=== PATIENT | female | born 1950 | race Caucasian/White ===

== ENCOUNTER → 2019-08-06 | Outpatient (CLI) | payer MEDICARE | END | disposition home or self-care (01) | LOC: LABPAT 11:47 | PROVIDERS: ATTEND Orthopaedic Surgery | DX: Z01.812 Encounter for preprocedural laboratory examination (principal) | CPT/HCPCS: 87070 ==

== ENCOUNTER 2019-08-24 05:55 | Day surgery (SDC) | payer MEDICARE ==
[2019-08-18 15:08] VITALS: BMI 29.5
--- NOTE | 2019-08-23 11:22 | HP ---
HISTORY AND PHYSICAL REASON FOR ADMISSION: Surgery scheduled for 08/24/2019. HISTORY OF PRESENT ILLNESS: Juanis Robb is a 69-year-old patient seen with symptomatic right knee osteoarthritis. After having treatment options discussed with her, she elected to proceed with right total knee arthroplasty. Consent regarding the procedure was obtained. Medical clearance was provided by Dr. Sorto. PAST MEDICAL HISTORY: Noncontributory. PAST SURGICAL HISTORY: Left total knee arthroplasty. MEDICATIONS: Advil. ALLERGIES: CODEINE. SOCIAL HISTORY: She denies current tobacco use. PHYSICAL EXAMINATION: Evaluation of right knee range of motion is -7 to 115. There is a mild effusion present. She has tenderness along the medial joint line. There is crepitus along the medial and patellofemoral compartments with range of motion. There is pain with patellofemoral compression. Ligaments are stable. Hip rotation is without pain. Distal neurovascular exam is intact. RADIOGRAPHS: Right knee radiographs reveal severe osteoarthritic changes. IMPRESSION: Right knee osteoarthritis. PLAN: Right total knee arthroplasty. Her surgery is scheduled for 08/24/2019. MMODL / IJN: [id number] /
[~2019-08-24 05:55] MED LIST: ACETAMINOPHEN TAB 500 MG TAB PO ONE; MELOXICAM 7.5 MG TAB PO ONE; TRANEXAMIC ACID 1,000 MG in SODIUM CHLORIDE 0.9% 100 ML IVPB ONE
[2019-08-24] MEDS ORDERED: ROPIVACAINE 246.25 MG, EPINEPHrine 0.5 MG, KETOROLAC 30 MG, cloNIDine HCL/PF 80 MCG, WA... MISCELLANE ONE ×5 (06:00)
[2019-08-24] MEDS ORDERED: ONDANSETRON 4 MG/2 ML VIAL IVP ONE (06:09)
[2019-08-24] MEDS ORDERED: LIDOCAINE 1% (10MG/ML) FOR IV START INTRADERMA ONE (06:39)
[2019-08-24] MEDS: LACTATED RINGERS 1,000 ML IV SCH (06:41)
[2019-08-24] MEDS ORDERED: DEXAMETHASONE SOD PHOS (MDV) 100 MG/10 ML VIAL IVP ONE (06:45)
[2019-08-24] MEDS ORDERED: MIDAZOLAM 2 MG/2 ML VIAL IVP ONE (07:06)
[2019-08-24] MEDS ORDERED: fentaNYL (PF) 50 MCG/ML 2 ML AMP IVP ONE (07:06)
[2019-08-24] MEDS ORDERED: TRANEXAMIC ACID 1,000 MG/10 ML VIAL ONE (07:30)
[2019-08-24] MEDS ORDERED: NEOSTIGMINE 1 MG/ML 10 ML VIAL ONE (07:30)
[2019-08-24] MEDS ORDERED: SODIUM CHLORIDE 0.9% 100 ML BAG ONE (07:30)
[2019-08-24] MEDS ORDERED: VECURONIUM 10 MG VIAL IV ONE (07:30)
[2019-08-24] MEDS ORDERED: GLYCOPYRROLATE 0.2 MG/ML 2 ML VIAL ONE (07:30)
[2019-08-24] MEDS ORDERED: PROPOFOL 10 MG/ML 20 ML VIAL IV ONE (07:30)
[2019-08-24] MEDS ORDERED: HYDROmorphone (PF) 1 MG/ML ONE (07:30)
[2019-08-24] MEDS ORDERED: SUCCINYLCHOLINE CHLORIDE 100 MG/5 ML SYR IV ONE (07:30)
[2019-08-24] MEDS ORDERED: LIDOCAINE 1% INJ 10MG/ML (20 ML MDV) ONE (07:30)
[2019-08-24] MEDS ORDERED: fentaNYL (PF) 50 MCG/ML 2 ML AMP ONE (07:30)
[2019-08-24] MEDS ORDERED: ROPIVACAINE 0.2%-NS ON-Q PUMP 1,090 MG, EMPTY PAIN BALL 1 EACH MISCELLANE PRN (07:56)
--- NOTE | 2019-08-24 07:57 | P.ANPRN ---
Procedure Note - Anesthesia - Nerve Block Performed Right Adductor Canal Infusion Time Out Performed: Yes Date of Procedure: 08/24/19 Procedure Start Time: 07:05 Procedure Stop Time: 07:14 Location of Patient: PreOp Indication: Acute Post-Operative Pain, Requested by Surgeon Specifically requested for management of pain by DrLaz: Yunior Hayden Sedation Type: Sedate with meaningful contact maintained Preparation: Sterile Prep Position: Supine Catheter Depth at Skin (cm): 8 Catheter: Indwelling Needle Types: Pajunk Needle Gauge: 18 Ultrasound used to visualize needle placement: Yes Ultrasound used to observe medication spread: Yes Injectate: 0.5% Ropivacaine (see comment for volume) (20 cc) Blood Aspirated: No Pain Paresthesia on Injection Noted: No Resistance on Injection: Normal Image Stored and Saved: Yes Events: Uneventful and Well Tolerated
[2019-08-24] MEDS ORDERED: LACTATED RINGERS 1,000 ML IV ONE ×2 (08:15→09:14)
[2019-08-24] MEDS ORDERED: HYDROmorphone 1 MG/ML 1 ML SYRINGE IVP PRN (09:14)
[2019-08-24] MEDS ORDERED: HYDROmorphone 0.5 MG/0.5 ML SYRINGE IVP PRN ×2 (09:14)
[2019-08-24] MEDS ORDERED: NALOXONE 0.4 MG/ML 1 ML VIAL IV PRN (09:14)
[2019-08-24] MEDS ORDERED: HYDROcodone/APAP 5-325MG 1 EACH TAB PO PRN ×2 (09:14)
--- NOTE | 2019-08-24 09:14 | P.OP ---
Date of Procedure: 08/24/19 Preoperative Diagnosis: Right knee osteoarthritis Postoperative Diagnosis: Right knee osteoarthritis Procedure(s) Performed: Right total knee arthroplasty Implants: 1. Depuy attune size 6 narrow cruciate retaining cemented femur 2. Depuy attune size 6 fixed bearing cemented tibial baseplate 3. Depuy attune size 6 bearing 12 mm polyethylene tibial insert 4. Depuy attune 38 mm all polyethylene cemented patella Anesthesia: GETA, regional (Adductor canal catheter), local Surgeon: Yunior Hayden Mobile Battery Technician #1: Jose Wallace Estimated Blood Loss (ml): 35 Pathology: other (Bone) Condition: stable Disposition: PACU Indications for Procedure: 69-year-old patient seen with symptomatic right knee osteoarthritis. After having treatment options discussed, she elected to proceed with total knee arthroplasty. Operative Findings: see description of procedure Description of Procedure: Patient was taken to the operative suite after having an adductor canal catheter placed by the department of anesthesia. Patient underwent a general anesthetic by the department of anesthesia. Patient was given preoperative IV intake antibiotics and TXA. A well-padded tourniquet was placed about the right lower extremity. The lower extremity was then prepped and draped in the normal sterile orthopedic fashion. The extremity was elevated, a tourniquet was insufflated to 300. A standard anterior incision was made sharply through skin. Dissection was taken down through the subcutaneous soft tissues down to the extensor mechanism. A medial arthrotomy was performed, patella was everted and knee was flexed. There was advanced osteoarthritis noted. I introduced my distal intramedullary femoral drill. I then introduced the distal femoral cutting jig. Lorenzo OLIVA secured the cutting jig with 2 pins. I held retractors in position while Lorenzo OLIVA performed the distal femoral resection through the guide area we now removed her distal femoral cutting guide. We now placed our 4-in-1 femoral cutting block and positioned and it was secured with 2 pins by Lorenzo OLIVA while I held the block in position. The distal femoral finishing was now completed. A proximal tibial cutting guide was positioned. I held the guide in the appropriate position with both hands well Lorenzo OLIVA inserted stabilizing pins into the guide. Proximal tibial cut was made. We now placed a trial femoral component into position, along with an appropriate size tibial tray and insert. We now took the knee through range of motion and had full extension good flexion and good overall soft tissue balance noted. The patella was everted and stabilized with 2 towel clips held by Lorenzo OLIVA while I performed a flush with patellar quad tendon utilizing a fresh sawblade. We templated the patella, appropriate drill holes were made. An appropriate trial patella was positioned, knee was taken through full range of motion with the patella tracking very nicely. The trial patella was removed. Drill holes were made through the femoral component. All trial components were removed after marking off the appropriate rotation of the tibia. Retractors were now positioned along the proximal tibia. An appropriate keel punch was made with the appropriate size tibial guide by myself on Lorenzo OLIVA assisted by holding retractors. At this point appropriate size implants were chosen and opened. The joint was irrigated copiously with pulse lavage mechanical irrigation. The posterior capsule was infiltrated with local analgesic. The wound was irrigated with pulse lavage mechanical irrigation. We mixed antibiotic methylmethacrylate. We placed the knee into flexion. We placed multiple retractors assisted by Lorenzo OLIVA to expose the proximal tibia. Once the methyl methacrylate was ready, the tibial component was cemented into place removing any excess methylmethacrylate form by both myself and Lorenzo OLIVA. The femoral component was cemented into place removing the removing any excess methylmethacrylate performed by both myself and Lorenzo OLIVA. We then inserted the appropriate size polyethylene tibial insert. We made sure that it was locked into position. We took the knee into full extension, and then back in a flexion making sure we had removed any excess methylmethacrylate. The patellar component was then cemented down and secured with clamp. Excess methylmethacrylate removed. We kept the knee in full extension, patellar clamp in position until methylmethacrylate had hardened. Once it had hardened the patellar clamp was removed. The knee was taken through full range of motion. The patella tracked nicely. There was good soft tissue balancing. The tourniquet was now released. Additional hemostasis was achieved via electr ocautery. A second gram of TXA was given. The wound again was irrigated with pulse lavage mechanical irrigation. The superficial soft tissues were infiltrated local analgesic. The extensor mechanism was repaired with Vicryl. We checked the repair with range of motion and it was stable. The subcutaneous soft tissues were repaired with Vicryl in layers. The skin was approximated with pernio/Dermabond. Sterile dressings were applied followed by loose web roll and Robe bandage. The patient was transferred to a bed, and taken to recovery in stable and satisfactory condition. Lorenzo OLIVA assisted with this complex procedure.
[2019-08-24] MEDS ORDERED: diphenhydrAMINE 50 MG/ML 1 ML VIAL IVP ONE (09:51)
[2019-08-24] MEDS ORDERED: KETOROLAC 30 MG/ML 1 ML VIAL IVP ONE (09:52)
--- NOTE | 2019-08-24 09:56 | XR ---
EXAMINATION TYPE: XR knee limited RT DATE OF EXAM: 08/24/2019 COMPARISON: NONE TECHNIQUE: Two views submitted HISTORY: Post op FINDINGS: There is a prosthetic knee in near anatomic alignment. There is soft tissue edema and emphysema. IMPRESSION: 1. Postoperative change. Appears in near-anatomic alignment
[2019-08-24] MEDS: ONDANSETRON 4 MG/2 ML VIAL IVP PRN (10:10)
[2019-08-24] MEDS ORDERED: PROMETHAZINE INJ 25 MG/ML 1 ML VIAL IVPB ONE (10:39)
[2019-08-24] MEDS ORDERED: SCOPOLAMINE 1.5MG/72HR PATCH TRANSDERM ONE (10:49)
[2019-08-24] MEDS ORDERED: TRIMETHOBENZAMIDE 100 MG/ML 2 ML VIAL IM STA (11:26)
[2019-08-24] MEDS ORDERED: MAGNESIUM HYDROXIDE 2,400 MG/10 ML CUP PO PRN (12:59)
[2019-08-24] MEDS ORDERED: traMADol 50 MG TAB PO PRN (12:59)
[2019-08-24] MEDS ORDERED: ACETAMINOPHEN TAB 325 MG TAB PO PRN (12:59)
[2019-08-24 19:29] VITALS: RESP 17
[2019-08-24] MEDS: ENOXAPARIN 30 MG/0.3 ML SYRINGE SQ SCH (20:29)
[2019-08-24] MEDS ORDERED: SENNOSIDES-DOCUSATE SODIUM 1 EACH TAB PO SCH (21:00)
[2019-08-25] MEDS: ONDANSETRON 4 MG/2 ML VIAL IVP PRN (07:20)
[2019-08-25] MEDS: ENOXAPARIN 30 MG/0.3 ML SYRINGE SQ SCH (07:22)
[2019-08-25] MEDS: LACTATED RINGERS 1,000 ML IV SCH (07:31)
[2019-08-25 07:46] VITALS: BP 130/75; PULSE 89; TEMP 97.9
[2019-08-25 07:49] LABS: Basophils % (A) 0 %; Eosinophils % (A) 0 %; HCT 38.8 % (34.0-46.0); HGB 12.4 gm/dL (11.4-16.0); Lymphocytes # (A) 1.6 k/uL (1.0-4.8); Lymphocytes % (A) 12 %; MCH 29.4 pg (25.0-35.0); MCHC 32.1 g/dL (31.0-37.0); MCV 91.8 fL (80.0-100.0); Mean Platelet Volume 7.2; Monocytes # (A) 0.6 k/uL (0-1.0); Monocytes % (A) 5 %; Neutrophils # (A) 10.8 k/uL (1.3-7.7); Neutrophils % (A) 82 %; Platelet Count 286 k/uL (150-450); RBC 4.22 m/uL (3.80-5.40); RDW 12.8 % (11.5-15.5); WBC 13.1 k/uL (3.8-10.6)
--- NOTE | 2019-08-25 10:18 | P.PN ---
Subjective Progress Note Date: 08/25/19 Principal diagnosis: Status post right total knee arthroplasty patient is evaluated today at bedside. Patient was scheduled for outpatient surgery yesterday, she had severe nausea after surgery, she was admitted to Hospital for likely 1 night. She's doing better with nausea today. She is utilizing antinausea medication and not taking much of the narcotics at this time. She is ambulate well with physical therapy. She denies any chest pain or shortness of breath. Objective - Vital Signs Vital signs: Vital Signs Temp 97.9 F 08/25/19 07:00 Pulse 89 08/25/19 07:00 Resp 17 08/25/19 07:20 BP 130/75 08/25/19 07:00 Pulse Ox 93 L 08/25/19 07:00 Intake & Output 08/24/19 08/25/19 08/25/19 18:59 06:59 18:59 Intake Total 1600 Output Total 35 Balance 1565 Weight 76.5 kg Intake: IV 1600 Output: Estimated Blood Loss 35 Other: Voiding Method Toilet Toilet # Voids 3 - Exam Right lower extremity: Incision is clean, dry, and intact. The exofin fusion tape is in good condition. There is minimal soft tissue swelling and ecchymosis surrounding the medial and lateral aspects of the incision. Calf is soft, no tenderness with palpation. Plantar flexion, dorsiflexion, EHL, FHL are intact. Sensory exam to light touch throughout the extremity is intact, dorsal pedis pulses 2+. - Labs CBC & Chem 7: 08/25/19 06:55 Labs: Abnormal Lab Results - Last 24 Hours (Table) 08/25/19 Range/Units 06:55 WBC 13.1 H (3.8-10.6) k/uL Neutrophils # 10.8 H (1.3-7.7) k/uL Assessment and Plan Assessment: postoperative day #1 status post right total knee arthroplasty Plan: Pain control, plan for discharge on tramadol 50 mg, [id number] Tylenol and Advil as needed GI and DVT prophylaxis, we'll check copay Xarelto 10 mg every 12 days, if too expensive will utilize aspirin 81 mg twice a day Wound care instructions were discussed Icing and elevating techniques discussed Home physical therapy and nursing after discharge Medical recommendations Plan for discharge home today Time with Patient: Less than 30
--- NOTE | 2019-08-25 10:40 | P.PN ---
Progress Note - Text 08/24 650am 69-year-old female status post total knee replacement by Dr. noel. Patient has an On-Q pump for postop pain control with the solution running at 8 mL an hour with a VAS of 4. Dressing clean dry and intact. Plan to continue On-Q pump infusion
--- NOTE | 2019-08-25 11:56 | P.CONS ---
History of Present Illness - Reason for Consult Consult date: 08/25/19 medical management Requesting physician: Yunior Hayden - Chief Complaint R knee OA - History of Present Illness Juanis Robb is a 69 yo F with PMH of OA who is admitted for a scheduled R TKA. She underwent this procedure yesterday with Dr Hayden and is overall feeling well today. She reports pain that is well controlled with dilaudid and norco but had had some nausea. She denies fever, chills, chest pain, shortness of breath or leg swelling. She has been able to ambulate with PT and denies difficulty with transfers or balance. Review of Systems All systems: negative Constitutional: Denies chills, Denies fever Eyes: denies blurred vision, denies pain Ears, nose, mouth and throat: Denies headache, Denies sore throat Cardiovascular: Denies chest pain, Denies shortness of breath Respiratory: Denies cough Gastrointestinal: Denies abdominal pain, Denies diarrhea, Denies nausea, Denies vomiting Genitourinary: Denies dysuria, Denies hematuria Musculoskeletal: Reports gait dysfunction, Reports limitation of motion, Reports myalgias Integumentary: Denies pruritus, Denies rash Neurological: Denies numbness, Denies weakness Psychiatric: Denies anxiety, Denies depression Endocrine: Denies fatigue, Denies weight change Past Medical History Past Medical History: Osteoarthritis (OA) History of Any Multi-Drug Resistant Organisms: None Reported Past Surgical History: Joint Replacement Additional Past Surgical History / Comment(s): left knee replaced Past Anesthesia/Blood Transfusion Reactions: Postoperative Nausea & Vomiting (PONV) Past Psychological History: No Psychological Hx Reported Smoking Status: Never smoker Past Alcohol Use History: None Reported Past Drug Use History: None Reported - Past Family History Mother Family Medical History: Cancer Additional Family Medical History / Comment(s): colon Medications and Allergies Home Medications Medication Instructions Recorded Confirmed Type Ibuprofen [Advil] 200 - 400 mg PO Q6HR PRN 08/18/19 08/24/19 History Multivitamins, Thera [Multivitamin 1 tab PO DAILY 08/18/19 08/24/19 History (formulary)] Acetaminophen Tab [Tylenol] 650 mg PO Q4H PRN 08/24/19 08/24/19 History Docusate [Colace] 100 mg PO DAILY #30 capsule 08/25/19 Rx Famotidine [Pepcid] 20 mg PO DAILY #30 tablet 08/25/19 Rx Ondansetron HCl [Zofran] 8 mg PO DAILY PRN #14 tab 08/25/19 Rx Rivaroxaban [Xarelto] 10 mg PO DAILY #12 tab 08/25/19 Rx traMADol HCl [Ultram] 50 mg PO Q6H PRN #28 tab 08/25/19 Rx Allergies Allergy/AdvReac Type Severity Reaction Status Date / Time narcotics AdvReac Nausea Uncoded 08/24/19 06:19 Physical Exam Vitals: Vital Signs Temp Pulse Resp BP Pulse Ox 08/25/19 07:20 17 08/25/19 07:00 97.9 F 89 17 130/75 93 L 08/25/19 04:00 105 H 17 08/25/19 00:22 97.6 F 105 H 17 148/85 96 08/24/19 23:48 108 H 17 08/24/19 19:28 97.7 F 108 H 17 132/79 97 08/24/19 16:00 16 08/24/19 14:40 97.3 F L 102 H 16 129/76 95 08/24/19 13:03 97 16 131/64 95 08/24/19 12:02 95 16 126/61 97 Intake and Output 08/24/19 08/25/19 08/25/19 22:59 06:59 14:59 Other: Voiding Method Toilet Toilet Toilet # Voids 1 3 General: well nourished, well developed, NAD. Vitals reviewed Eyes: PERRL, EOMI, conjunctiva normal HENT: normocephalic, mucus membranes moist Neck: supple, no JVD Lungs: normal respiratory effort, no wheezes or rales CV: Regular rate and rhythm, no murmur. Peripheral pulses 2+ Abdomen: soft, nondistended, no organomegaly MSK: no edema, no calf tenderness, painful to knee flexion RLE Skin: warm and dry. Neuro: A&Ox3, normal mood and affect Results CBC & Chem 7: 08/25/19 06:55 Labs: Abnormal Lab Results - Last 24 Hours (Table) 08/25/19 Range/Units 06:55 WBC 13.1 H (3.8-10.6) k/uL Neutrophils # 10.8 H (1.3-7.7) k/uL Assessment and Plan (1) Osteoarthritis of right knee Current Visit: Yes Status: Acute Code(s): M17.11 - UNILATERAL PRIMARY OSTEOARTHRITIS, RIGHT KNEE SNOMED Code(s): 719816911090280 (2) Status post total right knee replacement Current Visit: Yes Status: Acute Code(s): Z96.651 - PRESENCE OF RIGHT ARTIFICIAL KNEE JOINT SNOMED Code(s): 4691323247327 Plan: 1. OA of R knee. S/p R TKA. She is medically stable for discharge. Pain control per primary. Continue to work with PT on ROM and gait training
== END 2019-08-25 13:30 | disposition home health service (06) ==
LOC: OR 05:55 → 4SSUR 13:46 → OR 08-25 13:30
PROVIDERS: ATTEND Orthopaedic Surgery
DX: M17.11 Unilateral primary osteoarthritis, right knee (principal); Z88.5 Allergy status to narcotic agent; Z96.652 Presence of left artificial knee joint; Z91.89 Other specified personal risk factors, not elsewhere classified; Z80.0 Family history of malignant neoplasm of digestive organs; Z79.1 Long term (current) use of non-steroidal anti-inflammatories (NSAID); Z79.899 Other long term (current) drug therapy; Z79.01 Long term (current) use of anticoagulants; Z87.898 Personal history of other specified conditions
CPT/HCPCS: 27447; 97161; 64448; 76942; 85025; 88300; 73560; C1776; C1713; J2250; J0171; J1200; J2550; J2710; J3250; J0690; J2405 ×2; J2001; J3010; J1885; J1650 ×2; J1170 ×2; J1100; J2795 ×2; J0330; J2704; J0735

== ENCOUNTER → 2024-04-01 | Outpatient (CLI) | payer MEDICARE ==
[2024-04-01 08:21] VITALS: BP 137/83; PULSE 77; RESP 17; TEMP 97.9
--- NOTE | 2024-04-01 08:39 | P.BCPRE ---
History of Present Illness H&P Date: 04/01/24 Chief Complaint: Left breast ductal carcinoma in situ Juanis is a 73-year-old female seen in consultation for Dr. Francisco Sorto regarding a biopsy-proven left breast DCIS. She underwent a bilateral mammogram which led to a left breast stereotactic core biopsy procedure on 03-14-2024. She believes she had not had a mammogram for approximately 3 years prior to the most recent one leading to the stereotactic core biopsy. Her pathology revealed ductal carcinoma in situ which was ER positive and DC negative. The report of the stereotactic core biopsy reveals that the area of concern was 6 cm and a suspicious area of microcalcifications within the segment at the 12:00 region was selected for biopsy. She does not feel any lumps masses or nodules of concern in either breast. She has never had any surgery on her breast. She has not had any recent infection or trauma to her breast. Note from Dr. Francisco Sorto 03-20-2024 reviewed Caffiene: occasional nicotine: none chocolate: daily BCP: 3 years in her 20's Family History: mother: colon Hormonal History: menarche: 14 , breast fed: no, age at first : 30 menopause: 52 hormone: none Surgical HIstory: bilatearl knee replacement Medical History: arthris Social History: nicotine: none alcohol: none drugs: none Consent for Procedure: I have explained the operation/procedure to the patient, including the risks, benefits, side effects, alternative therapies (including not receiving the proposed treatment or service), the likelihood of the patient achieving his/her goals, and potential recuperation problems for the procedure/sedation/analgesia, as well as any blood products, if indicated. I also explained to the patient the risks, benefits and side effects of the alternatives, as well as the risks related to not receiving the proposed procedure, care, treatment, or services. Review of Systems Constitutional: Denies chills, Denies fever Eyes: denies blurred vision, denies pain Ears: deny: decreased hearing, tinnitus Ears, nose, mouth and throat: Denies headache, Denies sore throat Breasts: bilateral: as per HPI Breasts: Reports as per HPI Cardiovascular: Denies chest pain, Denies shortness of breath Respiratory: Denies cough Gastrointestinal: Denies abdominal pain, Denies diarrhea, Denies nausea, Denies vomiting Genitourinary: Denies dysuria, Denies hematuria Menstruation: Reports postmenopausal Musculoskeletal: Reports as per HPI Integumentary: Denies pruritus, Denies rash Neurological: Denies numbness, Denies weakness Psychiatric: Denies anxiety, Denies depression Endocrine: Denies fatigue, Denies weight change Hematologic/Lymphatic: Reports as per HPI Allergic/Immunologic: Reports as per HPI Past Medical History Past Medical History: Osteoarthritis (OA) History of Any Multi-Drug Resistant Organisms: None Reported Past Surgical History: Joint Replacement Additional Past Surgical History / Comment(s): left knee replaced Past Anesthesia/Blood Transfusion Reactions: Postoperative Nausea & Vomiting (PONV) Past Psychological History: No Psychological Hx Reported Past Alcohol Use History: None Reported Past Drug Use History: None Reported - Past Family History Mother Family Medical History: Cancer Additional Family Medical History / Comment(s): colon Medications and Allergies Home Medications Medication Instructions Recorded Confirmed Type Ibuprofen [Advil] 200 - 400 mg PO Q6HR PRN 08/18/19 08/24/19 History Multivitamins, Thera [Multivitamin 1 tab PO DAILY 08/18/19 08/24/19 History (formulary)] Acetaminophen Tab [Tylenol] 650 mg PO Q4H PRN 08/24/19 08/24/19 History Docusate [Colace] 100 mg PO DAILY #30 capsule 08/25/19 Rx Famotidine [Pepcid] 20 mg PO DAILY #30 tablet 08/25/19 Rx Rivaroxaban [Xarelto] 10 mg PO DAILY #12 tab 08/25/19 Rx ondansetron HCL [Zofran] 8 mg PO DAILY PRN #14 tab 08/25/19 Rx traMADol HCl [Ultram] 50 mg PO Q6H PRN #28 tab 08/25/19 Rx Allergies Allergy/AdvReac Type Severity Reaction Status Date / Time narcotics AdvReac Nausea Uncoded 08/24/19 06:19 Physical Exam - Constitutional General appearance: Reports cooperative - EENT Eyes: Reports normal appearance ENT: Reports hearing grossly normal - Respiratory Respiratory: bilateral: CTA - Cardiovascular Cardiac: Reports regular rhythm - Gastrointestinal General gastrointestinal: Reports soft - Integumentary Integumentary: Reports normal turgor - Psychiatric Psychiatric: Reports A&O x's 3, Reports appropriate affect, Reports intact judgment & insight - Additional Findings Additional findings: Breast Exam: BRA: [id number] Inspection: bilateral grade 3 ptosis Palpation: right breast: Multi positional exam fibrocystic changes, no dominant masses or nodules of concern, large area of seborrheic keratosis which is elevated at 1 edge Right axilla: No adenopathy of concern Left breast: Multi positional exam well-healed scar from prior biopsy, fibrocystic changes, no dominant masses or nodules of concern Left axilla: Shotty adenopathy Results Bilateral mammogram revealed 6 cm area of concern in the left breast, core biopsy positive for DCIS this was performed on 03-13-2024 Assessment and Plan Assessment: Impression: Left breast DCIS/6 cm area Arthritis Plan: Presentation of case at tumor board Will discuss surgical options with the patient which would vary from extensive lumpectomy to a mastectomy. CC: Dr. Roche
== END ==
LOC: WWCWWP 07:52
PROVIDERS: ATTEND Surgery
DX: D05.12 Intraductal carcinoma in situ of left breast

== ENCOUNTER → 2024-04-03 | Outpatient (CLI) | payer MEDICARE ==
[2024-04-03 15:21] LABS: HCT 42.9 % (37.2-46.3); MCHC 32.6 g/dL (32.0-37.0); MCV 92.1 FL (80.0-97.0); Mean Platelet Volume 10.1 FL (9.5-12.2); NRBC Per 100 WBC 0 X 10*3/uL (0.00-0.01); Platelet Count 251 X 10*3/uL (140-440); RBC 4.66 X 10*6/uL (4.10-5.20); RDW 13.8 % (11.5-14.5); WBC 7.16 X 10*3/uL (4.50-10.00)
[2024-04-03 15:27] LABS: ALT 14 U/L (8-44); AST 19 U/L (13-35); Albumin 4.4 g/dL (3.8-4.9); Albumin/Globulin Ratio 1.83 Ratio (1.60-3.17); Alkaline Phosphatase 74 U/L (41-126); BUN/Creat Ratio 26.38 Ratio (12.00-20.00); Blood Urea Nitrogen 21.1 mg/dL (9.0-27.0); Calcium 9.6 mg/dL (8.7-10.3); Carbon Dioxide 25.7 mmol/L (21.6-31.8); Chloride 106 mmol/L (96-109); Globulin 2.4 g/dL (1.6-3.3); Glucose 87 mg/dL (70-110); Potassium 4.2 mmol/L (3.5-5.5); Sodium 143 mmol/L (135-145); Total Bilirubin 1.5 mg/dL (0.3-1.2); Total Protein 6.8 g/dL (6.2-8.2)
[2024-04-03 15:44] LABS: INR 1.01 sec (0.93-1.11); Prothrombin Time 10.9 sec (9.9-11.9)
== END | disposition home or self-care (01) ==
LOC: LABWHC1 10:33
DX: Z01.812 Encounter for preprocedural laboratory examination (principal)
CPT/HCPCS: 36415; 80053; 85027; 85610

== ENCOUNTER 2024-04-07 08:44 | Day surgery (SDC) | payer MEDICARE ==
[2024-04-02 14:24] VITALS: BMI 27.3
[~2024-04-07 08:44] MED LIST changes: -ACETAMINOPHEN TAB 500 MG TAB PO ONE; -MELOXICAM 7.5 MG TAB PO ONE; -TRANEXAMIC ACID 1,000 MG in SODIUM CHLORIDE 0.9% 100 ML IVPB ONE; +fentaNYL (PF) 50 MCG/ML 2 ML AMP IV PRN
[2024-04-07] MEDS: IV FLUID CONTINUATION 1,000 ML IV ONE ×2 (09:25→17:09)
[2024-04-07] MEDS: ALPRAZolam 0.25 MG TAB PO PRN (09:34)
[2024-04-07] MEDS: ACETAMINOPHEN TAB 500 MG TAB PO PRN (09:41)
--- NOTE | 2024-04-07 10:06 | NM ---
EXAMINATION TYPE: NM sentinel node injection DATE OF EXAM: 04/07/2024 COMPARISON: NONE CLINICAL INDICATION: Female, 73 years old with history of D05.12 INTRADUCTALCARCINOMA IN SITU OF LEFT BREAST; TECHNIQUE AND FINDINGS: The procedure of sentinel lymph node injection was explained to the patient. The benefits, alternatives, and risks were discussed. An informed consent was then obtained. Overlying skin is cleaned with sterile alcohol. Following this, 511 uCi Tc99m Tilmanocept was inject ed in the upper outer aspect of the left nipple intradermally. The patient tolerated the procedure well without any immediate complication. The patient was kept in the radiology department for short stay after the procedure and then taken to surgery for surgical p rocedure what is presumed intraoperative gamma probe will be used for sentinel lymph node detection. IMPRESSION: Left breast radiotracer injection for sentinel node localization as above. [facility] Joanie Solano, , 04/07/2024 10:03 AM
[2024-04-07] MEDS: ONDANSETRON 4 MG/2 ML VIAL IVP ONE (10:26)
[2024-04-07] MEDS: DEXAMETHASONE SOD PHOSPHATE 4 MG/ML 1 ML VIAL IV ONE (10:27)
[2024-04-07] MEDS: HEPARIN SODIUM,PORCINE 5,000 UNIT/ML 1 ML VIAL SQ PRN (10:27)
--- NOTE | 2024-04-07 10:27 | P.NAPBC ---
NAPBC Queries - NAPBC Queries Was patient's case review presented at [facility] tumor board? If no, comment.: No (patient ready for surgery prior to being able to present) Was patient's pathology reviewed at [facility]? If no, comment.: Yes Was breast conservation surgery offered? If no, comment.: Yes (discussed but an area 6 cm so patient shoce mastectomy) Was sentinel node biopsy offered? If no, comment.: Yes Was diagnosis confirmed by percutaneous core biopsy? If no, comment.: Yes Is patient mastectomy patient?: Yes Was a preop referral to reconstructive surgeon offered?: Yes Clinical Stage: DCIS left breast
[2024-04-07] MEDS: MIDAZOLAM 2 MG/2 ML VIAL IVP ONE (11:18)
[2024-04-07] MEDS ORDERED: DEXAMETHASONE SOD PHOSPHATE 4 MG/ML 1 ML VIAL ONE (11:25)
[2024-04-07] MEDS ORDERED: PHENYLEPHRINE-0.9% NACL SYG 1,000 MCG/10 ML SYRINGE ONE (11:25)
[2024-04-07] MEDS ORDERED: PROPOFOL 10 MG/ML 20 ML VIAL IV ONE (11:25)
[2024-04-07] MEDS ORDERED: SUCCINYLCHOLINE CHLORIDE 200 MG/10 ML VIAL IV ONE (11:25)
[2024-04-07] MEDS ORDERED: ROPIVACAINE 5 MG/ML 30 ML VIAL ONE (11:25)
[2024-04-07] MEDS ORDERED: LIDOCAINE 1% INJ 10MG/ML (20 ML MDV) ONE (11:25)
[2024-04-07] MEDS ORDERED: HYDROmorphone (PF) 1 MG/ML ONE (11:25)
[2024-04-07] MEDS ORDERED: fentaNYL (PF) 50 MCG/ML 2 ML AMP ONE (11:25)
[2024-04-07] MEDS: LIDOCAINE 1% INJ 10MG/ML (20 ML MDV) SQ ONE ×3 (12:06→14:03)
[2024-04-07] MEDS: LACTATED RINGERS 1,000 ML IV ONE (12:47)
[2024-04-07] MEDS ORDERED: NALOXONE 0.4 MG/ML 1 ML VIAL IV PRN (13:32)
[2024-04-07] MEDS ORDERED: HYDROmorphone 1 MG/ML 1 ML SYRINGE IVP PRN (13:32)
[2024-04-07] MEDS ORDERED: ONDANSETRON 4 MG/2 ML VIAL IVP PRN (13:32)
[2024-04-07] MEDS ORDERED: TEMAZEPAM 15 MG CAP PO PRN (13:32)
--- NOTE | 2024-04-07 13:32 | P.BCAON ---
Date of Procedure: 04/07/24 Preoperative Diagnosis: Left breast DCIS Postoperative Diagnosis: Same Procedure(s) Performed: Left mastectomy, left sentinel node mapping, deep sentinel node biopsy Anesthesia: JULIANAA Surgeon: Leslye Pritchard Estimated Blood Loss (ml): 25 IV fluids (ml): 600 Pathology: other (Left breast, left sentinel node biopsy) Condition: stable Disposition: same day Indications for Procedure: Biopsy-proven left breast DCIS Operative Findings: Fibrofatty breast tissue/2 radioactive and blue lymph nodes Description of Procedure: The patient is a 73-year-old white female who had an abnormal mammogram result ing in a left breast stereo tactic core biopsy. This revealed DCIS. It was felt that the area of DCIS spanned at least 6 cm. After discussion with the patient and review of the radiographs the patient wished for a left mastectomy with a sentinel node biopsy. The choosing wisely criteria were discussed with the patient that she is 73 and despite this she wished to have the lymph node sampled. The patient was seen in the preoperative area and injected in the periareolar region with radiotracer. She was then brought to the operative suite. Following induction of anesthesia the neoprobe was used to interrogate the axilla. Minimal radioactivity was identified. Therefore 10 cc of half percent methylene blue were injected into the periareolar area. The tissue was massaged for approximately 5 minutes. The left breast and axilla were then prepped and draped in a sterile fashion. The markings were placed for superior and inferior skin flaps. A superior skin flap was developed and carried down to the pectoralis muscle. An inferior skin flap was likewise developed and carried down to the pectoralis muscle. The breast was grasped using Allis clamps medially and dissected from the pectoralis muscle. Hemostasis was attained using the electrocautery device, the harmonic scalpel, and suture ligation of any vessels of concern. When we approached the area of the axilla the neoprobe was used to identify increased radioactivity. Some increased radioactivity was identified as well as 2 blue lymph nodes the blue lymph nodes were consistent with the radioactive lymph nodes. The first was grasped and resected. The 10- second count on this was 5245. The second was grasped and resected and the 10- second count on this was 29,000. The 10-second background count was 17. Both lymph nodes which were removed were also blue. No other adenopathy of concern was identified. No other radioactive or blue lymph nodes of concern were noted. The wound was then well irrigated. 2 HERMELINDA drains were placed. 1 in the axilla and 1 under the inferior flap. Surgicel in powder form was placed. The subcutaneous tissue was brought together using interrupted 3-0 Vicryl suture. This was followed by an interrupted 3-0 running subcutaneous suture. 4-0 Monocryl subcuticular suture was placed. The drains were secured using nylon suture. 10 cc of 1% lidocaine was injected into the incision. The patient tolerated the procedure in stable condition. All instrument and sponge counts were correct at the end of the case. - Sentinal Node Biopsy Operation performed with curative intent: Yes Tracer(s) used in upfront surgery (non-neoadjuvant): dye, radioactive tracer Tracer(s) used in the neoadjuvant setting: N/A All nodes present at end of dye-filled channel removed: Yes All significantly radioactive nodes were removed: Yes All palpably suspicious nodes were removed: Yes Clipped positive nodes identified and removed: N/A
[2024-04-07] MEDS: droPERidol 5 MG/2 ML VIAL IVP ONE (16:04)
[2024-04-07] MEDS: DEXTROSE 5%-0.45% NACL 1,000 ML IV SCH (17:36)
[2024-04-07] MEDS: HEPARIN SODIUM,PORCINE 5,000 UNIT/ML 1 ML VIAL SQ SCH (17:49)
[2024-04-08 01:49] LABS: Glucose,Whole Blood 129 mg/dL (70-110)
[2024-04-08 05:38] LABS: Basophils % (A) 0 %; Eosinophils % (A) 0 %; HGB 13.1 gm/dL (11.4-16.0); Lymphocytes # (A) 1.2 k/uL (1.0-4.8); Lymphocytes % (A) 8 %; MCH 30.9 pg (25.0-35.0); MCHC 33.5 g/dL (31.0-37.0); MCV 92.2 fL (80.0-100.0); Mean Platelet Volume 7.8; Monocytes # (A) 0.9 k/uL (0-1.0); Monocytes % (A) 6 %; Neutrophils % (A) 85 %; Platelet Count 211 k/uL (150-450); RBC 4.23 m/uL (3.80-5.40); RDW 13.3 % (11.5-15.5); WBC 15.3 k/uL (3.8-10.6)
--- NOTE | 2024-04-08 10:00 | P.ANPRN ---
Procedure Note - Anesthesia - Nerve Block Performed Left Erector Spinae Single Time Out Performed: Yes Date of Procedure: 04/07/24 Procedure Start Time: 11:14 Procedure Stop Time: 11:17 Location of Patient: PreOp Indication: Acute Post-Operative Pain, Requested by Surgeon Sedation Type: Sedate with meaningful contact maintained Preparation: Sterile Prep Position: Sitting Needle Types: Pajunk Needle Gauge: 21 Ultrasound used to visualize needle placement: Yes Ultrasound used to observe medication spread: Yes Blood Aspirated: No Pain Paresthesia on Injection Noted: No Resistance on Injection: Normal Image Stored and Saved: Yes Events: Uneventful and Well Tolerated (Ropivacaine 0.5% 15 cc plus dexamethasone 4 mg plus normal saline 10 cc given at T5 on the left side)
[2024-04-08] MEDS: PANTOPRAZOLE 40 MG/10 ML VIAL IVP SCH (10:14)
[2024-04-08] MEDS: HYDROcodone/APAP 5-325MG 1 EACH TAB PO PRN (10:15)
[2024-04-08] MEDS: ONDANSETRON 4 MG/2 ML VIAL IVP PRN (10:15)
--- NOTE | 2024-04-08 11:15 | P.PN ---
Subjective Progress Note Date: 04/08/24 Principal diagnosis: Postop day #1 left breast mastectomy Juanis is a 73-year-old white female status post left mastectomy and sentinel node biopsy, postop day #1. Postoperatively she has some weakness and dizziness. She is not complaining of pain. Her HERMELINDA output is minimal. Her hemoglobin is 13.1. White count 15.3. Objective - Vital Signs Vital signs: Vital Signs Temp 97.6 F 04/08/24 07:56 Pulse 94 04/08/24 07:56 Resp 18 04/08/24 07:56 BP 124/73 04/08/24 07:56 Pulse Ox 97 04/08/24 07:56 FiO2 Intake & Output 04/07/24 04/08/24 04/08/24 18:59 06:59 18:59 Intake Total 2150 Output Total 635 1970 30 Balance 1515 -1969 Weight 67.8 kg Intake: IV 2150 Output: Drainage 10 20 30 Left Anterior Breast 10 20 10 Left posterior Breast 20 drain 2 Urine 600 1950 Estimated Blood Loss 25 Other: # Voids 1 - Constitutional General appearance: Present: cooperative - EENT Eyes: Present: EOMI ENT: Present: hearing grossly normal - Neck Neck: Present: normal ROM - Respiratory Details: Breath sounds at bases decreased - Cardiovascular Rhythm: regular Heart sounds: normal: S1, S2 - Integumentary Integumentary Comment(s): Plan left chest wall clean and dry, HERMELINDA output serous in nature anterior HERMELINDA drain 10 cc, posterior HERMELINDA drain 20 cc - Musculoskeletal Musculoskeletal: Present: generalized weakness - Psychiatric Psychiatric: Present: A&O x's 3, appropriate affect, intact judgment & insight - Labs CBC & Chem 7: 04/08/24 05:11 Labs: Abnormal Lab Results - Last 24 Hours (Table) 04/08/24 04/08/24 Range/Units 01:45 05:11 WBC 15.3 H (3.8-10.6) k/uL Neutrophils # 13.0 H (1.3-7.7) k/uL POC Glucose (mg/dL) 129 H (70-110) mg/dL Assessment and Plan Assessment: Impression: Patient stable postop day #1 left mastectomy with sentinel node biopsy Generalized weakness Plan: Transfer service to Dr. Sorto From a surgical standpoint patient is stable Will follow as needed
[2024-04-08] MEDS ORDERED: ACETAMINOPHEN TAB 325 MG TAB PO PRN (14:10)
[2024-04-08] MEDS ORDERED: traMADol 50 MG TAB PO PRN (14:10)
--- NOTE | 2024-04-08 15:15 | P.CONS ---
History of Present Illness - Reason for Consult Consult date: 04/08/24 Medical management Requesting physician: Leslye Pritchard - Chief Complaint Left breast DCIS, status post left mastectomy, left sentinel node mapping/b - History of Present Illness Is a pleasant 73-year-old female with past medical history significant for osteoarthritis,PONV, on no home medications, recent abnormal mammogram , left breast cancer status post left breast mastectomy. Reports positive pain this morning, but has been declining pain medication as it is making her nauseated. No bowel movement, passing minimal flatus. Currently expresses some lighthea dedness and weakness requiring 1-2 person assist to get up to bedside commode. Denies shortness of breath, continue O2 sats in the mid to high 90s on room air. Afebrile, WBC 15.3, hemoglobin 13.1, platelets 211, glucose 129. Review of Systems ROS Statement: Those systems with pertinent positive or pertinent negative responses have been documented in the HPI. ROS Other: All systems not noted in ROS Statement are negative. Past Medical History Past Medical History: Cancer, Osteoarthritis (OA) Additional Past Medical History / Comment(s): Breast CA History of Any Multi-Drug Resistant Organisms: None Reported Past Surgical History: Joint Replacement Additional Past Surgical History / Comment(s): Bilateral knee replacement Past Anesthesia/Blood Transfusion Reactions: Postoperative Nausea & Vomiting (PONV) Past Psychological History: No Psychological Hx Reported Smoking Status: Never smoker Past Alcohol Use History: None Reported Past Drug Use History: None Reported - Past Family History Mother Family Medical History: Cancer Additional Family Medical History / Comment(s): colon Medications and Allergies Home Medications Medication Instructions Recorded Confirmed Type oxyCODONE HCL [OxyIR] 5 mg PO Q6H PRN #5 tab 04/07/24 Rx Allergies Allergy/AdvReac Type Severity Reaction Status Date / Time Pain Medications AdvReac Nausea & Uncoded 04/07/24 09:07 Vomiting Physical Exam Vitals: Vital Signs Temp Pulse Pulse Pulse Resp BP BP 04/08/24 13:46 97 97 92 118/73 119/77 04/08/24 12:00 97.5 F L 85 16 04/08/24 07:56 97.6 F 94 18 04/08/24 04:40 98.3 F 99 16 04/08/24 01:39 97.7 F 92 16 04/07/24 21:28 97.9 F 99 16 04/07/24 18:30 95 16 04/07/24 18:15 95 14 04/07/24 18:00 97 14 04/07/24 17:45 95 14 04/07/24 17:30 97.5 F L 104 H 14 04/07/24 17:07 97 16 04/07/24 16:35 87 16 04/07/24 16:21 94 16 04/07/24 16:08 94 16 04/07/24 15:31 90 16 04/07/24 15:16 91 16 04/07/24 15:01 90 16 BP Pulse Ox 04/08/24 13:46 116/72 04/08/24 12:00 126/74 95 04/08/24 07:56 124/73 97 04/08/24 04:40 119/67 96 04/08/24 01:39 111/62 97 04/07/24 21:28 129/78 99 04/07/24 18:30 130/72 95 04/07/24 18:15 130/74 97 04/07/24 18:00 130/80 96 04/07/24 17:45 127/72 04/07/24 17:30 121/75 92 L 04/07/24 17:07 133/62 95 04/07/24 16:35 136/68 94 L 04/07/24 16:21 137/66 94 L 04/07/24 16:08 154/73 96 04/07/24 15:31 137/66 96 04/07/24 15:16 140/63 96 04/07/24 15:01 139/64 99 Intake and Output 04/07/24 04/08/24 04/08/24 22:59 06:59 14:59 Intake Total 100 Output Total 910 1670 605 Balance -810 -1670 -605 Intake: IV 100 Output: Drainage 10 20 55 Left Anterior Breast 10 20 35 Left posterior Breast 20 drain 2 Urine 900 1650 550 Other: # Voids 1 1 Weight 67.8 kg General: well nourished, well developed, NAD. Vitals reviewed Eyes: PERRL, EOMI, conjunctiva normal HENT: normocephalic, mucus membranes moist Neck: supple, no JVD Lungs: normal respiratory effort, no wheezes or rales CV: Regular rate and rhythm, no murmur. Peripheral pulses 2+ Abdomen: soft, nondistended, no organomegaly MSK: no edema, no calf tenderness, positive DP pulse Skin: warm and dry. Left chest wall dressing clean dry and intact, minimal serous JPX2 drainage Neuro: A&Ox3, normal mood and affect Results CBC & Chem 7: 04/08/24 05:11 Labs: Abnormal Lab Results - Last 24 Hours (Table) 04/08/24 04/08/24 Range/Units 01:45 05:11 WBC 15.3 H (3.8-10.6) k/uL Neutrophils # 13.0 H (1.3-7.7) k/uL POC Glucose (mg/dL) 129 H (70-110) mg/dL Assessment and Plan Assessment: Left breast cancer status post left mastectomy with sentinel node biopsy PONV Generalized weakness secondary to recent surgery, anesthesia Plan: Continue on current medication resume ,monitoring and symptomatic treatment. Antiemetic/Zofran increased to every 6 hours prn. PPI ordered for GI prophylaxis. Tramadol and Tylenol added to pain med regimen-patient might be able to tolerate easier. PT/OT consulted. Case management consulted for potential subacute rehab at discharge. Aggressive pulmonary toileting with incentive spirometer reinforced, currently up to 1500. Orthostatic vital signs ordered, may consider gentle IV fluid hydration. Local wound care as per primary/surgery. Thank you for the consult. The impression and plan of care has been dictated as directed. : I performed a history and examination of this patient, discussed the same with the dictator. I agree with the dictator's note ,documented as a scribe. Any additional findings or plans will be noted.
[2024-04-08] MEDS: SENNOSIDES-DOCUSATE SODIUM 1 EACH TAB PO SCH (16:02)
[2024-04-08] MEDS: SODIUM CHLORIDE 0.9% 1,000 ML IV SCH (16:04)
[2024-04-08] MEDS: LACTATED RINGERS 1,000 ML IV SCH (23:07)
[2024-04-09 04:33] VITALS: RESP 18
[2024-04-09 07:10] LABS: Basophils % (A) 0 %; Eosinophils # (A) 0.1 k/uL (0-0.7); Eosinophils % (A) 1 %; HCT 39.7 % (34.0-46.0); HGB 13.3 gm/dL (11.4-16.0); Lymphocytes # (A) 1.7 k/uL (1.0-4.8); Lymphocytes % (A) 17 %; MCH 31.1 pg (25.0-35.0); MCHC 33.4 g/dL (31.0-37.0); Mean Platelet Volume 8.3; Monocytes # (A) 0.7 k/uL (0-1.0); Monocytes % (A) 6 %; Neutrophils # (A) 7.9 k/uL (1.3-7.7); Neutrophils % (A) 75 %; Platelet Count 209 k/uL (150-450); RBC 4.27 m/uL (3.80-5.40); RDW 13.7 % (11.5-15.5); WBC 10.5 k/uL (3.8-10.6)
[2024-04-09 07:36] LABS: African American GFR (CKD) 81 (>60 ml/min/1.73 sqM); Anion Gap 6 mmol/L; Blood Urea Nitrogen 12 mg/dL (7-17); Calcium 8.9 mg/dL (8.4-10.2); Carbon Dioxide 28 mmol/L (22-30); Chloride 108 mmol/L (98-107); Glucose 91 mg/dL (74-99); Non-African American GFR(CKD) 70 (>60 ml/min/1.73 sqM); Potassium 3.9 mmol/L (3.5-5.1); Sodium 142 mmol/L (137-145)
[2024-04-09 08:35] VITALS: BP 134/78; PULSE 84; TEMP 97.5
[2024-04-09] MEDS ORDERED: POTASSIUM CHLORIDE ER 20 MEQ TAB.ER PO STA (10:55)
--- NOTE | 2024-04-09 11:11 | P.DS ---
Providers Expected date of discharge: 04/09/24 Attending physician: Francisco Sorto MD Consults: 04/07/24 21:23 Consult Physician Stat Consulting Provider: Francisco Sorto Consult Reason/Comments: Medical management Do you want consulting provider notified?: Yes Primary care physician: Francisco Sorto MD Hospital Course: Final Diagnoses: Left breast cancer status post left mastectomy with sentinel node biopsy PONV Generalized weakness secondary to recent surgery, anesthesia Hospital course:- Chief Complaint Left breast DCIS, status post left mastectomy, left sentinel node mapping/b - History of Present Illness This is a pleasant 73-year-old female with past medical history significant for osteoarthritis,PONV, on no home medications, recent abnormal mammogram , left breast cancer status post left breast mastectomy. Reports positive pain this morning, but has been declining pain medication as it is making her nauseated. No bowel movement, passing minimal flatus. Currently expresses some lightheadedness and weakness requiring 1-2 person assist to get up to bedside commode. Denies shortness of breath, continue O2 sats in the mid to high 90s on room air. Afebrile, WBC 15.3, hemoglobin 13.1, platelets 211, glucose 129. Negative for orthostatic hypotension. Received gentle IV fluid hydration with significant clinical improvement. Denies chest pain, palpitations or shortness of breath. Maintaining O2 sats in the high 90s on room air. Reports she feels better this morning .Denies lightheadedness, dizziness or focal deficits. Reports pain controlled, declining pain medication currently. No nausea or vomiting. Positive bowel movement. Antiemetic/Zofran increased to every 6 hours prn. PPI ordered for GI prophylaxis. Tramadol and Tylenol added to pain med regimen-patient might be able to tolerate easier. PT/OT consulted. Case management consulted for potential subacute rehab at discharge. Aggressive pulmonary toileting with incentive spirometer reinforced, currently up to 1500. Orthostatic vital signs ordered, may consider gentle IV fluid hydration. Local wound care as per primary/surgery. Thank you for the consult. Cleared by general surgery for discharge. Patient will be discharged to subacute rehab today pending authorization. Local wound care/JPs as per general surgery. Follow-up appointment to be scheduled with surgery prior to discharge. General: Alert and oriented x 3, NAD. Vitals reviewed Eyes: PERRL, EOMI, conjunctiva normal HENT: normocephalic, mucus membranes moist Neck: supple, no JVD Lungs: normal respiratory effort, no wheezes or rales CV: Regular rate and rhythm, no murmur. Peripheral pulses 2+ Abdomen: soft, nondistended, no organomegaly MSK: no edema, no calf tenderness, positive DP pulse Skin: warm and dry. Left chest wall dressing clean dry and intact, minimal serous JPX2 drainage The impression and plan of care has been dictated as directed. : I performed a history and examination of this patient, discussed the same with the dictator. I agree with the dictator's note ,documented as a scribe. Any additional findings or plans will be noted. Patient Condition at Discharge: Stable Plan - Discharge Summary Discharge Rx Participant: No New Discharge Prescriptions: New Acetaminophen Tab [Tylenol] 650 mg PO Q6HR PRN tab PRN Reason: Fever And/ Or Pain Pantoprazole [Protonix] 40 mg PO AC-BRKFST tab Sennosides-Docusate Sodium [Senokot-S] 2 each PO BID tab Discharge Medication List Acetaminophen Tab [Tylenol] 650 mg PO Q6HR PRN tab 04/09/24 [Rx] Pantoprazole [Protonix] 40 mg PO AC-BRKFST tab 04/09/24 [Rx] Sennosides-Docusate Sodium [Senokot-S] 2 each PO BID tab 04/09/24 [Rx] Follow up Appointment(s)/Referral(s): Leslye Pritchard MD [STAFF PHYSICIAN] - 1 Week [facility], [NON-STAFF] - 1-2 Days Patient Instructions/Handouts: Mastectomy (GEN) Activity/Diet/Wound Care/Special Instructions: Local wound care/JPs removal as ordered per Dr. Ricky Donovan. Please schedule appointment with Dr. Ricky Donovan prior to discharge. Continue I-S every hour x 10 while awake x 2 weeks. RIKY aggarwal CHELA: Discharge Disposition: TRANSFER TO SNF/ECF
[2024-04-10] MEDS ORDERED: PANTOPRAZOLE 40 MG TABLET PO SCH (07:30)
== END 2024-04-09 14:00 ==
LOC: OR 08:44 → 4FBP 14:04 → OR 04-09 14:00
PROVIDERS: ATTEND Family Medicine
DX: D05.12 Intraductal carcinoma in situ of left breast (principal); M19.90 Unspecified osteoarthritis, unspecified site; Z79.899 Other long term (current) drug therapy; Z96.653 Presence of artificial knee joint, bilateral; Z80.0 Family history of malignant neoplasm of digestive organs
CPT/HCPCS: 19303; 38525; 97161; 97166; 64999; 80048; 85025 ×2; 88342; 88307; 88341; 38792; A9520; J2250; J0330; J1644 ×3; J1100; J0690; J2405 ×2; J2003; J3010; J1171; J2795; J2704; J1790; J2371; J2470 ×2; 64447

== ENCOUNTER → 2024-04-20 | Outpatient (CLI) | payer MEDICARE ==
[2024-04-20 09:59] VITALS: BP 119/72; PULSE 85; RESP 17; TEMP 98.5
--- NOTE | 2024-04-20 10:24 | P.BCPO ---
Progress Note - Text Progress Note Date: 04/20/24 Juanis is a 73 year old status post left breast mastectomy and SNB on 04-07-24. 2.2 CM DCIS margins (-), 3 SNB all (-). Closest margin 2 cm. Lungs: Clear Heart: Regular rate and rhythm Incision: Clean and dry 2 HERMELINDA drains are in place output was not documented however she was told that it was minimal she was in a nursing facility Impression: Patient doing well postoperative Plan: follow up medical oncology follow up here in one week check drain output Post Op Education - Post Op Education Post Op Education Provided Date: 04/20/24 - Functional Assessment Performed?: Yes (arm abduction passed) Path Report - Was patient given path report? Path Report Date Given: 04/20/24
== END ==
LOC: WWCWWP 08:50
PROVIDERS: ATTEND Surgery

== ENCOUNTER → 2024-05-01 | Outpatient (CLI) | payer MEDICARE ==
[2024-05-01 08:58] VITALS: BP 131/74; PULSE 86; RESP 16; TEMP 98.3
--- NOTE | 2024-05-01 09:48 | P.PN ---
Subjective Progress Note Date: 05/01/24 Progress Note - Text Progress Note Date: 05-01-24 Juanis is a 73 year old status post left breast mastectomy and SNB on 04-07-24. 2.2 CM DCIS margins (-), 3 SNB all (-). Closest margin 2 cm. seen on 04-20-24 and drains removed. Lungs: Clear Heart: Regular rate and rhythm Incision: Clean and dry Incision left chest wall clean and dry Small seroma Skin lesion right breast Impression: Patient doing well postoperative Plan: follow up medical oncology follow up here in one week Following informed consent aspiration of seroma office visit to remove skin lesion right breast Following informed consent the area of concern in the left breast was prepped u sing alcohol. An 18-gauge needle and a 20 cc syringe was used to aspirate 32 cc of straw-colored fluid. There was complete resolution of the seroma. The patient tolerated the procedure in stable condition. Patient has appointment with medical oncology next week and the plan is for her to return to work following that. Post Op Education - Post Op Education Post Op Education Provided Date: 04/20/24 - Functional Assessment Performed?: Yes (arm abduction passed) Path Report - Was patient given path report? Path Report Date Given: 04/20/24 Additional CC's: Francisco Sorto Objective - Vital Signs Vital signs: Vital Signs Temp 98.3 F 05/01/24 08:55 Pulse 86 05/01/24 08:55 Resp 16 05/01/24 08:55 BP 131/74 05/01/24 08:55 Pulse Ox 97 05/01/24 08:55 FiO2 Intake & Output 04/30/24 05/01/24 05/01/24 18:59 06:59 18:59 Weight 65.317 kg
== END ==
LOC: WWCWWP 08:09
PROVIDERS: ATTEND Surgery
DX: N64.89 Other specified disorders of breast (principal); L98.8 Other specified disorders of the skin and subcutaneous tissue; L76.33 Postprocedural seroma of skin and subcutaneous tissue following a dermatologic procedure; Z85.3 Personal history of malignant neoplasm of breast; Z90.12 Acquired absence of left breast and nipple; Z88.8 Allergy status to other drugs, medicaments and biological substances

== ENCOUNTER → 2024-05-12 | Outpatient (CLI) | payer MEDICARE ==
[2024-05-12 09:58] VITALS: BP 125/72; PULSE 89; RESP 17; TEMP 97.9
--- NOTE | 2024-05-12 11:44 | P.PN ---
Subjective Progress Note Date: 05/12/24 Principal diagnosis: left mastectomy for DCIS 05/01/24 Progress Note - Text Progress Note Date: 05-01-24 Juanis is a 73 year old status post left breast mastectomy and SNB on 04-07-24. 2.2 CM DCIS margins (-), 3 SNB all (-). Closest margin 2 cm. seen on 04-20-24 and drains removed. She was seen by medical oncology and told she had an opening in the axillary portion of her incision and comes today for evaluation. Upon examination of the incision there is approximately a 4 mm area of subcutaneous opening in the left most lateral aspect of the axillary incision. This was debrided and packed. There is no evidence of any infection. The patient is doing well. Plan: Follow-up in 1 week Objective - Vital Signs Vital signs: Vital Signs Temp 97.9 F 05/12/24 09:32 Pulse 89 05/12/24 09:32 Resp 17 05/12/24 09:32 BP 125/72 05/12/24 09:32 Pulse Ox 97 05/12/24 09:32 FiO2 Intake & Output 05/11/24 05/12/24 05/12/24 18:59 06:59 18:59 Weight 65.317 kg Assessment and Plan Assessment: Plan: Follow-up in 1 week Patient is going to pack area of concern and will follow-up sooner any questions or concerns
== END ==
LOC: WWCWWP 08:13
PROVIDERS: ATTEND Surgery
DX: Z04.89 Encounter for examination and observation for other specified reasons (principal); Z90.12 Acquired absence of left breast and nipple; Z85.3 Personal history of malignant neoplasm of breast; Z88.8 Allergy status to other drugs, medicaments and biological substances

== ENCOUNTER → 2024-05-27 | Outpatient (CLI) | payer MEDICARE ==
--- NOTE | 2024-05-27 14:10 | BD ---
EXAMINATION TYPE: Axial Bone Density DATE OF EXAM: 05/27/2024 CLINICAL HISTORY: 73 years old Female. ICD-10 CODE: M81.0 osteopenia , Additional History: Height: 59.5 in Weight: 145 lbs EXAM MEASUREMENTS: Bone mineral densitometry was performed using the VisiQuate System. Bone mineral density as measured about the Lumbar spine is: ----- L1-L4(G/cm2): 1.025 T Score Values are as follows: ----- L1: -2.2 ----- L2: -2.3 ----- L3: -1.2 ----- L4: 0.1 ----- L1-L4: -1.3 Z Score Values are as follows: ----- L1: -0.6 ----- L2: -0.7 ----- L3: 0.5 ----- L4: 1.8 ----- L1-L4: 0.4 Bone mineral density has: Decreased -4.1% since study of: 01/25/2006 Bone mineral density about the R hip (g/cm2): 0.765 Bone mineral density about the L hip (g/cm2): 0.772 T Score values are as follows: -----R Neck: -2.6 -----L Neck: -2.8 -----R Total: -1.9 -----L Total: -1.9 Z Score values are as follows: -----R Neck: -0.8 -----L Neck: -1.0 -----R Total: -0.4 -----L Total: -0.3 Bone mineral density has: Decreased -18.5% since study of: 01/25/2006 FRAX%s: The graph provided illustrates a 17.6% chance for a major osteoporotic fx and a 5.6% chance f or the hips probability for fx in 10 years time. IMPRESSION: Osteoporosis (T Score less than -2.5). There is increased fracture risk and therapy is usually indicated based on age. Re-Screen 1-2 years. NOTE: T-SCORE=SD OF THE YOUNG ADULT MEAN. [facility], , 05/27/2024 2:07 PM
== END | disposition home or self-care (01) ==
LOC: RADBDWWP 10:54
PROVIDERS: ATTEND Internal Medicine Hematology & Oncology
DX: M81.0 Age-related osteoporosis without current pathological fracture (principal); Z78.0 Asymptomatic menopausal state
CPT/HCPCS: 77080

== ENCOUNTER → 2024-09-04 | Outpatient (CLI) | payer MEDICARE ==
[2024-09-04 14:06] VITALS: BP 95/60; PULSE 55; RESP 15; TEMP 97.5
--- NOTE | 2024-09-04 14:19 | P.PN ---
Subjective Progress Note Date: 09/04/24 Principal diagnosis: left breast DCIS 202304/01/24 Chief Complaint: Left breast ductal carcinoma in situ Juanis is a 73-year-old female seen in consultation for Dr. Francisco Sorto regarding a biopsy-proven left breast DCIS. She underwent a bilateral mammogram which led to a left breast stereotactic core biopsy procedure on 03-14-2024. She believes she had not had a mammogram for approximately 3 years prior to the most recent one leading to the stereotactic core biopsy. Her pathology revealed ductal carcinoma in situ which was ER positive and CT negative. The report of the stereotactic core biopsy reveals that the area of concern was 6 cm and a suspicious area of microcalcifications within the segment at the 12:00 region was selected for biopsy. She does not feel any lumps masses or nodules of concern in either breast. She has never had any surgery on her breast. She has not had any recent infection or trauma to her breast. She underwent a left breast mastectomy on 04-07-24, 2.2 cm area of DCIS, 3 nodes removed all (-). She saw medical oncology and was recommended to undergo hormonal therapy and at this time she declined. She is not complaining of any lumps masses or nodules of concern in her right breast or on her left chest wall. She was recently diagnosed with Parkinsons disease Caffiene: occasional nicotine: none chocolate: daily BCP: 3 years in her 20's Family History: mother: colon Hormonal History: menarche: 14 , breast fed: no, age at first : 30 menopause: 52 hormone: none Surgical HIstory: bilatearl knee replacement Medical History: arthesther Social History: nicotine: none alcohol: none drugs: none Review of Systems Constitutional: Denies chills, Denies fever Eyes: denies blurred vision, denies pain Ears: deny: decreased hearing, tinnitus Ears, nose, mouth and throat: Denies headache, Denies sore throat Breasts: bilateral: as per HPI Breasts: Reports as per HPI Cardiovascular: Denies chest pain, Denies shortness of breath Respiratory: Denies cough Gastrointestinal: Denies abdominal pain, Denies diarrhea, Denies nausea, Denies vomiting Genitourinary: Denies dysuria, Denies hematuria Menstruation: Reports postmenopausal Musculoskeletal: Reports as per HPI Integumentary: Denies pruritus, Denies rash Neurological: Denies numbness, Denies weakness Psychiatric: Denies anxiety, Denies depression Endocrine: Denies fatigue, Denies weight change Hematologic/Lymphatic: Reports as per HPI Allergic/Immunologic: Reports as per HPI Past Medical History Past Medical History: Osteoarthritis (OA) History of Any Multi-Drug Resistant Organisms: None Reported Past Surgical History: Joint Replacement Additional Past Surgical History / Comment(s): left knee replaced Past Anesthesia/Blood Transfusion Reactions: Postoperative Nausea & Vomiting (PONV) Past Psychological History: No Psychological Hx Reported Past Alcohol Use History: None Reported Past Drug Use History: None Reported - Past Family History Mother Family Medical History: Cancer Additional Family Medical History / Comment(s): colon Medications and Allergies Home Medications Medication Instructions Recorded Confirmed Type Ibuprofen [Advil] 200 - 400 mg PO Q6HR PRN 08/18/19 08/24/19 History Multivitamins, Thera [Multivitamin 1 tab PO DAILY 08/18/19 08/24/19 History (formulary)] Acetaminophen Tab [Tylenol] 650 mg PO Q4H PRN 08/24/19 08/24/19 History Docusate [Colace] 100 mg PO DAILY #30 capsule 08/25/19 Rx Famotidine [Pepcid] 20 mg PO DAILY #30 tablet 08/25/19 Rx Rivaroxaban [Xarelto] 10 mg PO DAILY #12 tab 08/25/19 Rx ondansetron HCL [Zofran] 8 mg PO DAILY PRN #14 tab 08/25/19 Rx traMADol HCl [Ultram] 50 mg PO Q6H PRN #28 tab 08/25/19 Rx Allergies Allergy/AdvReac Type Severity Reaction Status Date / Time narcotics AdvReac Nausea Uncoded 08/24/19 06:19 Objective - Vital Signs Vital signs: Vital Signs Temp 97.5 F L 09/04/24 14:03 Pulse 55 L 09/04/24 14:03 Resp 15 09/04/24 14:03 BP 95/60 09/04/24 14:03 Pulse Ox 98 09/04/24 14:03 FiO2 Intake & Output 09/03/24 09/04/24 09/04/24 18:59 06:59 18:59 Weight 60.328 kg - Constitutional General appearance: Present: cooperative - EENT Eyes: Present: EOMI ENT: Present: hearing grossly normal - Neck Neck: Present: normal ROM - Respiratory Respiratory: bilateral: CTA - Cardiovascular Rhythm: regular Heart sounds: normal: S1, S2 - Integumentary Integumentary: Present: normal turgor - Neurologic Neurologic Comment(s): tremor - Musculoskeletal Musculoskeletal: Present: gait normal - Psychiatric Psychiatric: Present: A&O x's 3, appropriate affect, intact judgment & insight - Additional findings Additional findings: Breast Exam: BRA: 38DD Inspection: bilateral grade 3 ptosis Palpation: right breast: Multi positional exam fibrocystic changes, no dominant masses or nodules of concern, large area of seborrheic keratosis which is elevated at 1 edge Right axilla: No adenopathy of concern Left breast: chest wall no masses or nodules of concern Left axilla: Shotty adenopathy Assessment and Plan Assessment: Impression: Left breast mastectomy for DCIS No evidence of any recurrence Right breast fibrocystic breast changes, last mammogram February 2024 New diagnosis of Parkinson's disease Plan: repeat right breast mammogram in February 2025 with appointment at that time appointment with medical oncology follow up sooner any concerns CC: Dr. Sorto
== END ==
LOC: WWCWWP 13:18
PROVIDERS: ATTEND Surgery
DX: D05.12 Intraductal carcinoma in situ of left breast (principal); N60.11 Diffuse cystic mastopathy of right breast; G20.A1 Parkinson's disease without dyskinesia, without mention of fluctuations; Z90.12 Acquired absence of left breast and nipple; Z88.6 Allergy status to analgesic agent

== ENCOUNTER 2024-09-27 05:08 | Emergency (ER) | payer MEDICARE ==
[2024-09-27 05:25] LABS: Basophils # (A) 0.1 k/uL (0-0.2); Basophils % (A) 1 %; Eosinophils # (A) 0.1 k/uL (0-0.7); Eosinophils % (A) 2 %; HCT 40.3 % (34.0-46.0); HGB 12.6 gm/dL (11.4-16.0); Lymphocytes # (A) 1.4 k/uL (1.0-4.8); Lymphocytes % (A) 19 %; MCH 29.3 pg (25.0-35.0); MCHC 31.4 g/dL (31.0-37.0); MCV 93.5 fL (80.0-100.0); Mean Platelet Volume 7.5; Monocytes # (A) 0.2 k/uL (0-1.0); Monocytes % (A) 3 %; Neutrophils # (A) 5.5 k/uL (1.3-7.7); Neutrophils % (A) 74 %; Platelet Count 286 k/uL (150-450); RBC 4.31 m/uL (3.80-5.40); RDW 13.8 % (11.5-15.5); WBC 7.5 k/uL (3.8-10.6)
--- NOTE | 2024-09-27 05:32 | ED ---
General Adult HPI - General Source: patient, EMS, RN notes reviewed, old records reviewed Mode of arrival: EMS Limitations: no limitations <Nikhil Lombardi - Last Filed: 09/27/24 05:32> <Gage Maharaj - Last Filed: 09/27/24 08:05> - General Chief complaint: Urogenital Stated complaint: Vaginal Bleeding Time Seen by Provider: 09/27/24 05:10 - History of Present Illness Initial comments: 74-year-old female presenting for evaluation of vaginal bleeding. Patient had an episode of dark vaginal bleeding while at [facility] where she is currently receiving rehab from a fall. Patient denies any dysuria or hematuria. She denies rectal bleeding. Denies any abdominal pain. Denies vaginal trauma. Patient had noticed a moderate amount of dark vaginal bleeding, 1 total episode prior to arrival. (Nikhil Lombardi) - Related Data Previous Rx's Medication Instructions Recorded Acetaminophen Tab [Tylenol] 650 mg PO Q6HR PRN tab 04/09/24 Pantoprazole [Protonix] 40 mg PO AC-BRKFST tab 04/09/24 Sennosides-Docusate Sodium 2 each PO BID tab 04/09/24 [Senokot-S] Allergies Allergy/AdvReac Type Severity Reaction Status Date / Time Pain Medications AdvReac Nausea & Uncoded 09/27/24 05:13 Vomiting Review of Systems ROS Other: All systems not noted in ROS Statement are negative. <Nikhil Lombardi - Last Filed: 09/27/24 05:32> ROS Other: All systems not noted in ROS Statement are negative. <Gage Maharaj - Last Filed: 09/27/24 08:05> ROS Statement: Those systems with pertinent positive or pertinent negative responses have been documented in the HPI. Past Medical History Past Medical History: Cancer, Osteoarthritis (OA) Additional Past Medical History / Comment(s): Breast CA History of Any Multi-Drug Resistant Organisms: None Reported Past Surgical History: Joint Replacement Additional Past Surgical History / Comment(s): Bilateral knee replacement Past Anesthesia/Blood Transfusion Reactions: Postoperative Nausea & Vomiting (PONV) Past Psychological History: No Psychological Hx Reported Smoking Status: Never smoker Past Alcohol Use History: None Reported Past Drug Use History: None Reported - Past Family History Mother Family Medical History: Cancer Additional Family Medical History / Comment(s): colon <Nikhil Lombardi - Last Filed: 09/27/24 05:32> General Exam General appearance: alert, in no apparent distress Head exam: Present: atraumatic, normocephalic Eye exam: Present: normal appearance, PERRL Respiratory exam: Present: normal lung sounds bilaterally. Absent: respiratory distress Cardiovascular Exam: Present: regular rate, normal rhythm GI/Abdominal exam: Present: soft. Absent: distended, tenderness, guarding, rebound External exam: Present: other (Normal exam, minimal amount of dark blood ). Absent: lacerations Neurological exam: Present: alert Skin exam: Present: warm, dry, intact <Nikhil Lombardi - Last Filed: 09/27/24 05:32> Course Vital Signs 09/27/24 09/27/24 05:09 06:35 Temperature 97.5 F L Pulse Rate 98 99 Respiratory 18 18 Rate Blood Pressure 138/82 139/77 O2 Sat by Pulse 98 96 Oximetry Medical Decision Making - Lab Data Result diagrams: 09/27/24 05:18 <Nikhil Lombardi - Last Filed: 09/27/24 05:32> - Lab Data Result diagrams: 09/27/24 05:18 09/27/24 05:18 <Gage Maharaj - Last Filed: 09/27/24 08:05> - Medical Decision Making Was pt. sent in by a medical professional or institution ([facility]EL [facility]son, OVERNIGHT ASSOCIATE, urgent care, hospital, or half-way...) When possible be specific @ -No Did you speak to anyone other than the patient for history (EMS, parent, family, police, friend...)? What history was obtained from this source @ -No Did you review nursing and triage notes (agree or disagree)? Why? @ -I reviewed and agree with nursing and triage notes Were old charts reviewed (outside hosp., previous admission, EMS record, old EKG, old radiological studies, urgent care reports/EKG's, half-way records)? Report findings @ -No old charts were reviewed Differential Vaginal Bleeding: dysfunctional uterine bleeding, uterine mass, vaginal laceration, uterine fibroids, this is not meant to be an all-inclusive list. EKG interpreted by me (3pts min.). @ -As above X-rays interpreted by me (1pt min.). @ -None done CT interpreted by me (1pt min.). @ -None done U/S interpreted by me (1pt. min.). @ -Ultrasound has been ordered, results pending What testing was considered but not performed or refused? (CT, X-rays, U/S, labs)? Why? @ -None What meds were considered but not given or refused? Why? @ -None Did you discuss the management of the patient with other professionals (professionals i.e. , PA, OVERNIGHT ASSOCIATE, lab, RT, psych nurse, social service manager, political director, teacher, staff electronic warfare officer, insurance case manager)? Give summary @ -No Was smoking cessation discussed for >3mins.? @ -No Was critical care preformed (if so, how long)? @ -No Were there social determinants of health that impacted care today? How? (Homelessness, low income, unemployed, alcoholism, drug addiction, tr ansportation, low edu. Level, literacy, decrease access to med. care, senior living, rehab)? @ -No Was there de-escalation of care discussed even if they declined (Discuss DNR or withdrawal of care, Hospice)? DNR status @ -No What co-morbidities impacted this encounter? (DM, HTN, Smoking, COPD, CAD, Cancer, CVA, ARF, Chemo, Hep., AIDS, mental health diagnosis, sleep apnea, morbid obesity)? @ -None Was patient admitted / discharged? Hospital course, mention meds given and route, prescriptions, significant lab abnormalities, going to OR and other pertinent info. @ -Patient care signed out at shift change awaiting laboratory studies, ultrasound, reevaluation. (Nikihl Lombardi) U/S interpreted by me (1pt. min.). @ -Ultrasound showed no acute abnormality Was patient admitted / discharged? Hospital course, mention meds given and route, prescriptions, significant lab abnormalities, going to OR and other pertinent info. @ -Patient had some blood in the urine. Patient stated only happened 1 time. Patient had no further bleeding in the emergency department. Patient will follow-up as an outpatient with her physician and if the bleeding continues and she believes it to be vaginal she will follow-up with OFFICE MANAGER RECEPTIONIST Undiagnosed new problem with uncertain prognosis? @ -No Drug Therapy requiring intensive monitoring for toxicity (Heparin, Nitro, Insulin, Cardizem)? @ -No Were any procedures done? @ -No Diagnosis/symptom? @ -Hematuria Acute, or Chronic, or Acute on Chronic? @ -Acute Uncomplicated (without systemic symptoms) or Complicated (systemic symptoms)? @ -Uncomplicated Side effects of treatment? @ -No Exacerbation, Progression, or Severe Exacerbation? @ -No Poses a threat to life or bodily function? How? (Chest pain, [place], CO, pneumonia, PE, COPD, DKA, ARF, appy, cholecystitis, CVA, Diverticulitis, Homicidal, Suicidal, threat to staff... and all critical care pts) @ -No (Gage Maharaj) - Lab Data Lab Results 09/27/24 09/27/24 09/27/24 Range/Units 05:18 05:18 05:18 WBC 7.5 (3.8-10.6) k/uL RBC 4.31 (3.80-5.40) m/uL Hgb 12.6 (11.4-16.0) gm/dL Hct 40.3 (34.0-46.0) % MCV 93.5 (80.0-100.0) fL MCH 29.3 (25.0-35.0) pg MCHC 31.4 (31.0-37.0) g/dL RDW 13.8 (11.5-15.5) % Plt Count 286 (150-450) k/uL MPV 7.5 Neutrophils % 74 % Lymphocytes % 19 % Monocytes % 3 % Eosinophils % 2 % Basophils % 1 % Neutrophils # 5.5 (1.3-7.7) k/uL Lymphocytes # 1.4 (1.0-4.8) k/uL Monocytes # 0.2 (0-1.0) k/uL Eosinophils # 0.1 (0-0.7) k/uL Basophils # 0.1 (0-0.2) k/uL PT 10.7 (10.0-12.5) sec INR 1.0 (<1.2) APTT 27.9 (22.0-30.0) sec Sodium 138 (137-145) mmol/L Potassium 4.5 (3.5-5.1) mmol/L Chloride 106 (98-107) mmol/L Carbon Dioxide 25 (22-30) mmol/L Anion Gap 7 mmol/L BUN 20 H (7-17) mg/dL Creatinine 0.52 (0.52-1.04) mg/dL Est GFR (CKD-EPI)AfAm >90 (>60 ml/min/1.73 sqM) Est GFR (CKD-EPI)NonAf >90 (>60 ml/min/1.73 sqM) Glucose 92 (74-99) mg/dL Calcium 9.3 (8.4-10.2) mg/dL Total Bilirubin 0.9 (0.2-1.3) mg/dL AST 26 (14-36) U/L ALT 13 (4-34) U/L Alkaline Phosphatase 72 (38-126) U/L Total Protein 6.3 (6.3-8.2) g/dL Albumin 3.6 (3.5-5.0) g/dL Urine Color Urine Appearance (Clear) Urine pH (5.0-8.0) Ur Specific [place] (1.001-1.035) Urine Protein (Negative) Urine Glucose (UA) (Negative) Urine Ketones (Negative) Urine Blood (Negative) Urine Nitrite (Negative) Urine Bilirubin (Negative) Urine Urobilinogen (<2.0) mg/dL Ur Leukocyte Esterase (Negative) Urine RBC (0-5) /hpf Urine WBC (0-5) /hpf Urine WBC Clumps (None) /hpf Ur Squamous Epith Cells (0-4) /hpf Amorphous Sediment (None) /hpf Urine Bacteria (None) /hpf Urine Mucus (None) /hpf Urine Yeast (Budding) (None) /hpf 09/27/24 Range/Units 06:31 WBC (3.8-10.6) k/uL RBC (3.80-5.40) m/uL Hgb (11.4-16.0) gm/dL Hct (34.0-46.0) % MCV (80.0-100.0) fL MCH (25.0-35.0) pg MCHC (31.0-37.0) g/dL RDW (11.5-15.5) % Plt Count (150-450) k/uL MPV Neutrophils % % Lymphocytes % % Monocytes % % Eosinophils % % Basophils % % Neutrophils # (1.3-7.7) k/uL Lymphocytes # (1.0-4.8) k/uL Monocytes # (0-1.0) k/uL Eosinophils # (0-0.7) k/uL Basophils # (0-0.2) k/uL PT (10.0-12.5) sec INR (<1.2) APTT (22.0-30.0) sec Sodium (137-145) mmol/L Potassium (3.5-5.1) mmol/L Chloride (98-107) mmol/L Carbon Dioxide (22-30) mmol/L Anion Gap mmol/L BUN (7-17) mg/dL Creatinine (0.52-1.04) mg/dL Est GFR (CKD-EPI)AfAm (>60 ml/min/1.73 sqM) Est GFR (CKD-EPI)NonAf (>60 ml/min/1.73 sqM) Glucose (74-99) mg/dL Calcium (8.4-10.2) mg/dL Total Bilirubin (0.2-1.3) mg/dL AST (14-36) U/L ALT (4-34) U/L Alkaline Phosphatase (38-126) U/L Total Protein (6.3-8.2) g/dL Albumin (3.5-5.0) g/dL Urine Color Yellow Urine Appearance Clear (Clear) Urine pH 6.5 (5.0-8.0) Ur Specific [place] 1.024 (1.001-1.035) Urine Protein Negative (Negative) Urine Glucose (UA) Negative (Negative) Urine Ketones Negative (Negative) Urine Blood Moderate H (Negative) Urine Nitrite Negative (Negative) Urine Bilirubin Negative (Negative) Urine Urobilinogen <2.0 (<2.0) mg/dL Ur Leukocyte Esterase Negative (Negative) Urine RBC 12 H (0-5) /hpf Urine WBC 2 (0-5) /hpf Urine WBC Clumps Rare H (None) /hpf Ur Squamous Epith Cells 2 (0-4) /hpf Amorphous Sediment Rare H (None) /hpf Urine Bacteria Rare H (None) /hpf Urine Mucus Rare H (None) /hpf Urine Yeast (Budding) Rare H (None) /hpf Disposition <Nikhil Lombardi - Last Filed: 09/27/24 05:32> Is patient prescribed a controlled substance at d/c from ED?: No Time of Disposition: 08:05 <Gage Maharaj - Last Filed: 09/27/24 08:05> Clinical Impression: Hematuria Disposition: HOME SELF-CARE Condition: Good Instructions (If sedation given, give patient instructions): Hematuria (ED) Referrals: Francisco Sorto MD [Primary Care Provider] - 1-2 days
[2024-09-27 05:35] LABS: Partial Thromboplastin Time 27.9 sec (22.0-30.0); Prothrombin Time 10.7 sec (10.0-12.5)
[2024-09-27 05:39] LABS: ALT 13 U/L (4-34); AST 26 U/L (14-36); African American GFR (CKD) >90 (>60 ml/min/1.73 sqM); Albumin 3.6 g/dL (3.5-5.0); Alkaline Phosphatase 72 U/L (38-126); Anion Gap 7 mmol/L; Blood Urea Nitrogen 20 mg/dL (7-17); Calcium 9.3 mg/dL (8.4-10.2); Carbon Dioxide 25 mmol/L (22-30); Chloride 106 mmol/L (98-107); Glucose 92 mg/dL (74-99); Non-African American GFR(CKD) >90 (>60 ml/min/1.73 sqM); Potassium 4.5 mmol/L (3.5-5.1); Sodium 138 mmol/L (137-145); Total Bilirubin 0.9 mg/dL (0.2-1.3); Total Protein 6.3 g/dL (6.3-8.2)
[2024-09-27 06:49] LABS: Amorphous Sediment,Urine Rare /hpf; Appearance,Urine Clear (Clear); Bacteria,Urine Rare /hpf; Bilirubin,Urine Negative (Negative); Blood,Urine Moderate (Negative); Budding Yeast,Urine Rare /hpf; Color,Urine Yellow; Glucose,Urine (UA) Negative (Negative); Ketones,Urine Negative (Negative); Leukocyte Esterase,Urine Negative (Negative); Mucus,Urine Rare /hpf; Nitrite,Urine Negative (Negative); PH, Urine 6.5 (5.0-8.0); Protein,Urine Negative (Negative); RBC,Urine 12 /hpf (0-5); Specific Gravity,Urine 1.024 (1.001-1.035); Squamous Epithelial Cell,Urine 2 /hpf (0-4); Urobilinogen,Urine <2.0 mg/dL (<2.0); WBC,Urine 2 /hpf (0-5)
--- NOTE | 2024-09-27 07:42 | US ---
EXAMINATION TYPE: US pelvic complete DATE OF EXAM: 09/27/2024 COMPARISON: NONE CLINICAL INDICATION: Female, 74 years old with history of Vaginal bleeding; Blood when wiping TECHNIQUE: Transabdominal (TA). Transabdominal grayscale sonographic images of the pelvis were acquired. Transvaginal sonographic im ages were not medically necessary. Doppler imaging: Color Doppler Images were obtained. Spectral doppler images were obtained. FINDINGS: Date of LMP: Unknown EXAM MEASUREMENTS: Uterus: 5.4 x 3.3 x 4.2 cm Endometrial Stripe: 0.1 cm Right Ovary: 1.8 x 1.3 x 1.7 cm Left Ovary: 1.8 x 1.1 x 1.4 cm 1. Uterus: Anteverted wnl 2. Endometrium: Fluid noted within 3. Right Ovary: wnl 4. Left Ovary: wnl Spectral, color and waveform doppler imaging shows good arterial and venous flow within the ovaries ; there is no evidence for ovarian torsion. 5. Bilateral Adnexa: wnl 6. Posterior cul-de-sac: wnl IMPRESSION: 1. No acute pelvic ultrasound and LT O-RADS 2021 [email or web address] [facility], , 09/27/2024 7:40 AM
[2024-09-27 08:09] VITALS: PULSE 65; RESP 16
[2024-09-27 08:22] VITALS: BP 126/75; TEMP 98.5
== END 2024-09-27 09:10 | disposition home or self-care (01) ==
LOC: EC 05:08
DX: R31.9 Hematuria, unspecified (principal); Z88.8 Allergy status to other drugs, medicaments and biological substances; W19.XXXA Unspecified fall, initial encounter
CPT/HCPCS: 36415; 76856; 80053; 81001; 85025; 85610; 85730; 93975; 99285